=== PATIENT | male | born 1950 | race Caucasian/White ===

== ENCOUNTER 2018-03-20 11:13 | Emergency (ER) | payer OTHER ==
[~2018-03-20] VITALS: Ht 172.7 cm; Wt 76.0 kg
[2018-03-20 11:18] VITALS: BP 167/104
== END 2018-03-20 16:13 | disposition home or self-care (01) ==
LOC: ER 11:30
DX: L53.9 Erythematous condition, unspecified (principal); M79.661 Pain in right lower leg; M79.89 Other specified soft tissue disorders; Z88.8 Allergy status to other drugs, medicaments and biological substances
CPT/HCPCS: 93971; 99284